=== PATIENT | female | born 1965 | race Caucasian/White ===

== ENCOUNTER 2019-07-10 10:11 | Outpatient (RCR) | payer BC | END 2019-07-14 | LOC: M OT 10:11 | PROVIDERS: ATTEND Family Medicine | DX: Z51.89 Encounter for other specified aftercare (principal); G56.03 Carpal tunnel syndrome, bilateral upper limbs ==

== ENCOUNTER 2019-08-08 08:00 | Outpatient (RCR) | payer BC | END 2019-08-13 | LOC: M OT 08:00 | PROVIDERS: ATTEND Family Medicine | DX: Z51.89 Encounter for other specified aftercare (principal); G56.03 Carpal tunnel syndrome, bilateral upper limbs ==